=== PATIENT | female | born 1985 | race Caucasian/White ===

== ENCOUNTER 2020-01-12 10:32 | Emergency (ER) | payer OTHER ==
[2020-01-12 12:03] LABS: Urine Blood NEGATIVE (NEG); Urine Glucose NEGATIVE (NEG); Urine Protein NEGATIVE (NEG)
[2020-01-12 12:05] LABS: Absolute Lymphocytes (CBC) 1.9 K/uL (0.7-4.9); Basophils % 0.3 % (0-1.3); Hematocrit 38.4 % (36.0-45.0); Lymphocytes % 14.3 % (15.3-44.8); RBC Red Blood Cell Count 4.02 M/uL (3.86-4.86)
[2020-01-12 12:21] LABS: Albumin 3.5 g/dL (3.4-5.0); Bilirubin Direct 0.1 mg/dL (0-0.2); Bilirubin Total 0.5 mg/dL (0.2-1.0); Potassium 3.3 mmol/L (3.5-5.1); Protein, Total 7.7 g/dL (6.4-8.2)
[2020-01-12 12:22] LABS: Urine Trichomonas PRESENT (NONE SEEN)
[2020-01-12 12:23] LABS: Urine Bacteria >50 /HPF (<20); Urine RBC <5 /HPF (NONE SEEN)
[2020-01-12] MEDS ORDERED: CEFTRIAXONE/SWI 1gm 1 GM/10 ML SYR ONE (13:01)
[2020-01-12] MEDS ORDERED: KETOROLAC 30 MG/ML INJ ONE (13:01)
--- NOTE | 2020-01-12 13:23 | RAD REPORT ---
EXAM DESCRIPTION: CT - Abdomen Pelvis W Contrast - 01/12/2020 1:09 pm CLINICAL HISTORY: Abdominal pain COMPARISON: none. TECHNIQUE: Computed axial tomography of the abdomen pelvis was obtained. 100 cc Isovue-300 was admin istered intravenously. Oral contrast was not requested which limits evaluation of bowel. All CT scans are performed using dose optimization technique as appropriate and may include automated exposure control or mA/KV adjustment according to patient size. FINDINGS: Moderate low-density areas within the right kidney reaching the periphery likely pyeloneph ritis. The liver, spleen, pancreas, adrenal and left kidney appear unremarkable. There is no evidence of diverticulitis. IMPRESSION: Moderate right pyelonephritis
--- NOTE | 2020-01-12 13:51 | ER ---
Nurse's Notes [facility] Name: Akua Skinner Age: 34 yrs Sex: Female : 1985 Arrival Date: 01/12/2020 Time: 10:37 Bed 15 Private MD: Diagnosis: Trichomoniasis;Right Pyelonephritis Presentation: 01/11 10:45 Chief complaint: Patient states: "I've been in detox since Tuesday at [facility]. I've ss been having a really bad detox." Pt reports fever, headache, body aches. Pt reports that she abuses Xanax, Valium, meth and alcohol." Last use was Tuesday. Coronavirus screen: Client denies travel out of the [place] in the last 14 days. Ebola Screen: Patient denies exposure to infectious person. Patient denies travel to an Ebola-affected area in the 21 days before illness onset. Initial Sepsis Screen: Does the patient meet any 2 criteria? No. Patient's initial sepsis screen is negative. Does the patient have a suspected source of infection? No. Patient's initial sepsis screen is negative. Risk Assessment: Do you want to hurt yourself or someone else? Patient reports no desire to harm self or others. Onset of symptoms was January 12, 2020. 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 - Social history:: Smoking status: Patient reports the use of cigarette tobacco products, denies chronic smoking, but will smoke occasionally, Patient uses alcohol, street drugs, Methamphetamine (Meth). Screenin:26 Abuse screen: Denies threats or abuse. Nutritional screening: No deficits noted. ll1 Tuberculosis screening: No symptoms or risk factors identified. Fall Risk IV access (20 points). Gait- Weak (10 pts.). Total Guevara Fall Scale indicates Low Risk Score (25-44 pts). Fall prevention measures have been instituted. Side Rails Up X 2 Frequent Obs/Assesments occuring As available Patient and Family Educated on Fall Prevention Program and strategies. Assessment: 11:00 General: Appears ill, Behavior is calm, cooperative, appropriate for age. Pain: ll1 Complains of pain in flanks Quality of pain is described as aching. Neuro: Level of Consciousness is awake, alert, obeys commands, Oriented to person, place, time, situation, Appropriate for age Kiln Operator are equal bilaterally Moves all extremities. Full function Weakness Gait is steady, Speech is normal, Reports headache. Cardiovascular: No deficits noted. Respiratory: No deficits noted. GI: Abdomen is flat, Bowel sounds present X 4 quads. Abd is soft and non tender X 4 quads. Reports cramping, nausea. : Urine is cloudy, Reports burning with urination, urinary frequency. Musculoskeletal: Circulation, motion, and sensation intact. Capillary refill < 3 seconds, Range of motion: intact in all extremities, Reports body aches, fatigue. 13:03 Reassessment: Pt to radiology via for CT scan. 13:22 Reassessment: Pt back on room from radiology. 13:24 Reassessment: Pt at nurses desk using the phone. 14:00 Reassessment: PO medications given. Discharge papers given with instructions and education. Pt requested Covid testing at this time. Vital Signs: 10:45 BP 108 / 68; Pulse 94; Resp 18; Temp 98.2(O); Pulse Ox 99% on R/A; Weight 63.5 kg; ss Height 5 ft. 8 in. (172.72 cm); Pain 8/10; 10:45 Body Mass Index 21.29 (63.50 kg, 172.72 cm) ED Course: 10:37 Patient arrived in ED. as 10:48 Triage completed. ss 10:50 Arm band placed on right wrist. ss 11:35 Ousmane Jesus, RASTA is Primary Nurse. ll1 11:41 Alek Moss NP is PHCP. pm1 11:41 Markos Da Silva MD is Attending Physician. pm1 11:56 Initial lab(s) drawn, by vt, sent to lab. Inserted saline lock: 22 gauge in right dh3 antecubital area, using aseptic technique. Blood collected. 12:26 Patient has correct armband on for positive identification. Bed in low position. Call ll1 light in reach. Side rails up X 1. 13:09 CT Abd/Pelvis - IV Contrast Only In Process Unspecified. EDMS 13:35 Assist provider with pelvic exam: Set up pelvic tray. Performed by Alek Moss NP 3 Specimens sent to lab. Patient tolerated well. 13:41 GC (GONORR/CHLAMYDIA) Probe Sent. dh3 13:41 Wet Prep Sent. 3 14:32 IV discontinued, intact, bleeding controlled, No redness/swelling at site. Pressure ah dressing applied. Administered Medications: 12:57 Drug: Rocephin 1 grams Route: IV; Rate: calculated rate; Site: right antecubital; 12:58 Drug: TORadol - Ketorolac 15 mg Route: IVP; Site: right antecubital; 14:00 Drug: AZITHromycin 1 grams Route: PO; 14:00 Drug: Flagyl 2 grams Route: PO; Outcome: 13:50 Discharge ordered by MD. pm1 14:32 Discharged to home ambulatory. 14:32 Condition: improved 14:32 Discharge instructions given to patient, Instructed on discharge instructions, follow up and referral plans. no drinking with medication, safe sex practices, Demonstrated understanding of instructions, follow-up care, medications, Prescriptions given X 2. 14:32 Patient left the ED. Addendum: 01/15/2020 15:53 Addendum: Culture Results: Positive urine culture. Bacteria is resistant to, has a a5 intermediate sensitivity, or is not tested against prescribed antibiotics. Report given to RENE for further evaluation and then to real estate appraiser for follow up with patient. Phone call Attempt #1 left voicemail at [phone]. 16:59 Addendum: COVID-19 Result: Negative result given to RN to notify pt. Attempted to a a5 contact pt regarding negative COVID-19 swab results. Left voice mail. 01/18/2020 10:45 Addendum: Culture Results: Positive urine culture. Phone call Attempt #1 symptoms i w improved, pt was notified that she was positive for gonorrhea also COVID-19 Result: Negative result given to RN to notify pt. Notified pt of negative COVID 19 swab results. Pt advised that even with a negative test result they should remain in isolation until symptom free for 3 days without medication. Pt also advised to return to the ED for worsening symptoms. Signatures: Dispatcher [employer] Esperanza yBrd Irene, RN RN Mely Harris RN RN aa5 Sarah Martin RN RN ss Alek Moss, FLOORLEADER FLOORLEADER pm1 Marlene Odraz dh3 Audra Mace RN RN Ousmane Jesus RN RASTA ll1
--- NOTE | 2020-01-12 13:51 | EDPHYS ---
Physician Documentation [facility] Name: Akua Skinner Age: 34 yrs Sex: Female : 1985 Arrival Date: 01/12/2020 Time: 10:37 Bed 15 Private MD: ED Physician Markos Da Silva HPI: 01/11 11:48 This 34 yrs old Female presents to ER via Ambulatory with complaints of Flank pm1 Pain, Fever. 11:48 The patient complains of pain in the left low back and right low back. The pain does pm1 not radiate. Onset: The symptoms/episode began/occurred 3 day(s) ago. Modifying factors: The symptoms are alleviated by nothing. the symptoms are aggravated by urinating. Associated signs and symptoms: Pertinent positives: dysuria, fever, vaginal discharged, Pertinent negatives: diarrhea, nausea, vomiting. Severity of pain: in the emergency department the pain is actually worse. The patient has not recently seen a physician. Patient reports unprotected sex on Tuesday. Onset of whitish vaginal discharge on Tuesday. 11:48 Patient is currently at drug rehabilitation . 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 - Social history:: Smoking status: Patient reports the use of cigarette tobacco products, denies chronic smoking, but will smoke occasionally, Patient uses alcohol, street drugs, Methamphetamine (Meth). ROS: 11:48 ENT: Negative for injury, pain, and discharge, Neck: Negative for injury, pain, and pm1 swelling, Cardiovascular: Negative for chest pain, palpitations, and edema, Respiratory: Negative for shortness of breath, cough, wheezing, and pleuritic chest pain, Abdomen/GI: Negative for abdominal pain, nausea, vomiting, diarrhea, and constipation. 11:48 MS/Extremity: Negative for injury and deformity, Skin: Negative for injury, rash, and discoloration. 11:48 Neuro: Negative for headache, weakness, numbness, tingling, and seizure. 11:48 Constitutional: Positive for fever, Negative for poor PO intake. 11:48 Back: Positive for flank pain, bilaterally. 11:48 : Positive for urinary symptoms, burning with urination, vaginal discharge. Exam: 11:48 Constitutional: This is a well developed, well nourished patient who is awake, alert, pm1 and in no acute distress. Head/Face: Normocephalic, atraumatic. 11:48 Skin: Warm, dry with normal turgor. Normal color with no rashes, no lesions, and no evidence of cellulitis. MS/ Extremity: Pulses equal, no cyanosis. Neurovascular intact. Full, normal range of motion. 11:48 Cardiovascular: Exam negative for acute changes, Rate: normal, Rhythm: regular, Pulses: no pulse deficits are appreciated. 11:48 Respiratory: Exam negative for acute changes, respiratory distress, shortness of breath. 11:48 Abdomen/GI: Inspection: abdomen appears normal, Palpation: abdomen is soft and non-tender, in all quadrants. 11:48 Back: CVA tenderness, that is mild, is noted bilaterally. 11:48 Neuro: Exam negative for acute changes, Orientation: is normal, Mentation: is normal, Motor: is normal, moves all fours, Sensation: is normal, no obvious gross deficits. 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 Vital Signs: 10:45 BP 108 / 68; Pulse 94; Resp 18; Temp 98.2(O); Pulse Ox 99% on R/A; Weight 63.5 kg; ss Height 5 ft. 8 in. (172.72 cm); Pain 8/10; 10:45 Body Mass Index 21.29 (63.50 kg, 172.72 cm) ss MDM: 11:41 Patient medically screened. pm1 13:48 Data reviewed: vital signs. Data interpreted: Pulse oximetry: on room air is 99 %. pm1 Interpretation: normal. Counseling: I had a detailed discussion with the patient and/or guardian regarding: the historical points, exam findings, and any diagnostic results supporting the discharge/admit diagnosis, lab results, radiology results, the need for outpatient follow up, a family practitioner, to return to the emergency department if symptoms worsen or persist or if there are any questions or concerns that arise at home. 01/11 11:42 Order name: Basic Metabolic Panel; Complete Time: 12:27 pm1 01/11 11:42 Order name: CBC with Diff; Complete Time: 12:27 pm1 01/11 11:42 Order name: Hepatic Function; Complete Time: 12:27 pm1 01/11 11:42 Order name: Lipase; Complete Time: 12:27 pm1 01/11 11:42 Order name: Urine Microscopic Only; Complete Time: 12:27 pm1 01/11 12:01 Order name: Urine Dipstick--Ancillary (enter results) 01/11 12:01 Order name: Urine --Ancillary (enter results); Complete Time: 12:27 eb 01/11 12:02 Order name: Urine Dipstick-Ancillary; Complete Time: 12:27 EDKY 01/11 12:25 Order name: Urine Culture [facility] 01/11 12:27 Order name: CT Abd/Pelvis - IV Contrast Only; Complete Time: 13:42 pm1 01/11 12:27 Order name: Wet Prep pm1 01/11 12:27 Order name: GC (GONORR/CHLAMYDIA) Probe 1 01/11 14:19 Order name: COVID-19 01/11 11:42 Order name: IV Saline Lock; Complete Time: 11:44 pm1 01/11 11:42 Order name: Labs collected and sent; Complete Time: 11:44 pm1 01/11 11:42 Order name: Urine Dipstick-Ancillary (obtain specimen); Complete Time: 12:00 pm1 01/11 11:42 Order name: Urine Test (obtain specimen); Complete Time: 12:00 pm1 01/11 12:27 Order name: Pelvic Exam Setup; Complete Time: 13:42 pm1 Administered Medications: 12:57 Drug: Rocephin 1 grams Route: IV; Rate: calculated rate; Site: right antecubital; 12:58 Drug: TORadol - Ketorolac 15 mg Route: IVP; Site: right antecubital; 14:00 Drug: AZITHromycin 1 grams Route: PO; 14:00 Drug: Flagyl 2 grams Route: PO; Disposition: 15:43 Co-signature as Attending Physician, Markos Da Silva MD. rn Disposition: 01/12/20 13:50 Discharged to Home. Impression: Right Pyelonephritis, Trichomoniasis. - Condition is Stable. - Discharge Instructions: Pyelonephritis, Adult, Sexually Transmitted Disease, Trichomoniasis. - Prescriptions for cefpodoxime 200 mg Oral Tablet - take 1 tablet by ORAL route every 12 hours for 10 days with food; 20 tablet. Doxycycline Hyclate 100 mg Oral Tablet - take 1 tablet by ORAL route every 12 hours; 20 tablet. - Medication Reconciliation Form, Thank You Letter, Antibiotic Education, Prescription Opioid Use form. - Follow up: Emergency Department; When: As needed; Reason: Worsening of condition. Follow up: Private Physician; When: 2 - 3 days; Reason: Recheck today's complaints, Continuance of care, Re-evaluation by your physician. - Problem is new. - Symptoms have improved. Signatures: Dispatcher [employer] EDKY Markos Da Silva MD MD rn Smirch, Shelby, RN RN Alek Moss NP RN CASE MANAGER pm1 Audra Mace RN RN Corrections: (The following items were deleted from the chart) 14:32 13:50 01/12/2020 13:50 Discharged to Home. Impression: Right ah PyelonephritisTrichomoniasis. Condition is Stable. Forms are Medication Reconciliation Form, Thank You Letter, Antibiotic Education, Prescription Opioid Use. Follow up: Emergency Department; When: As needed; Reason: Worsening of condition. Follow up: Private Physician; When: 2 - 3 days; Reason: Recheck today's complaints, Continuance of care, Re-evaluation by your physician. Problem is new. Symptoms have improved. pm1
[2020-01-12] MEDS ORDERED: metroNIDAZOLE 500 MG TABLET ONE (14:20)
[2020-01-12] MEDS ORDERED: AZITHROMYCIN 250 MG TAB ONE (14:20)
[2020-01-17 02:51] VITALS: BP 108/68; TEMP 98.2; O2SAT 99
[2020-01-17 04:46] LABS: C.trachomatis RNA,TMA Not Detected (Not Detected)
== END 2020-01-12 14:32 | disposition home or self-care (01) ==
LOC: ER 10:32
DX: N12 Tubulo-interstitial nephritis, not specified as acute or chronic (principal); A59.9 Trichomoniasis, unspecified; Z20.828 Contact with and (suspected) exposure to other viral communicable diseases; F31.9 Bipolar disorder, unspecified; F17.210 Nicotine dependence, cigarettes, uncomplicated; Z98.82 Breast implant status
CPT/HCPCS: 87088; 85025; 87086; 80048; 36415; 81025; 80076; 87210; 87077; 87186; 83690; 87590; 87490; 74177; 96375; 96374; 99284; U0002; Q9967; J0696; 81003; 81015